=== PATIENT | female | born 1940 | race Caucasian/White ===

== ENCOUNTER 2016-03-21 18:56 | Emergency (ER) | payer OTHER, MEDICARE, BC ==
[2016-03-21 19:43] VITALS: BP 145/67; PULSE 67; RESP 18; TEMP 98.7; O2SAT 99
[2016-03-21] MEDS ORDERED: APAP/HYDROCODONE 325/5 TAB PO ONE ×2 (20:05)
[2016-03-21] MEDS ORDERED: APAP/HYDROCODONE 325/5 TAB ONE (20:07)
[2016-03-21] MEDS ORDERED: APAP/CODEINE 300/30 TAB PO PRN (21:18)
[2016-03-21] MEDS ORDERED: APAP/CODEINE 300/30 TAB ONE (21:20)
== END 2016-03-21 21:30 | disposition home or self-care (01) | DRG 552 ==
LOC: ED 18:56
DX: S32.009A Unspecified fracture of unspecified lumbar vertebra, initial encounter for closed fracture (principal); W01.0XXA Fall on same level from slipping, tripping and stumbling without subsequent striking against object, initial encounter
CPT/HCPCS: 72070; 99282; 99283

== ENCOUNTER 2017-03-28 08:53 | Emergency (ER) | payer MEDICARE, BC ==
[2017-03-28] MEDS ORDERED: METOPROLOL TARTRATE 25 MG TAB PO ONE (09:08)
[2017-03-28] MEDS ORDERED: ASPIRIN 81 MG CHEWABLE CTB PO STA (09:08)
[2017-03-28] MEDS ORDERED: SODIUM CHLORIDE 0.9% FLUSH 10 ML SOL IV PRN (09:08)
[2017-03-28] MEDS ORDERED: METOPROLOL TARTRATE 25 MG TAB ONE (09:22)
[2017-03-28 09:28] LABS: BASOPHILS % (AUTO) 1 % (0-3); EOSINOPHILS % (AUTO) 1 % (0-9); HEMATOCRIT 44 % (35-47); MEAN CORPUSCULAR HGB CONC 34.3 gm/dl (32.0-36.0); MEAN CORPUSCULAR VOLUME 94 fL (81-99); MONOCYTES % (AUTO) 7.9 % (0-12); NEUTROPHILS % (AUTO) 56.6 % (37-80)
[2017-03-28 09:40] LABS: CALCIUM 9.1 mg/dl (8.5-10.1); GLOM FILT RATE 51 mL/min (>60); POTASSIUM 3.9 mMol/L (3.5-5.1); SODIUM 140 mMol/L (136-145)
[2017-03-28 11:04] VITALS: TEMP 98.8
[2017-03-28 12:26] VITALS: BP 146/79; PULSE 56; RESP 26; O2SAT 95
== END 2017-03-28 12:26 | disposition home or self-care (01) | DRG 313 ==
LOC: ED 08:53
DX: R07.9 Chest pain, unspecified (principal); I10 Essential (primary) hypertension
CPT/HCPCS: 36415; 71045; 80048; 82550; 83735; 84484; 85025; 85610; 85730; 93005; 99285; A9270-GY

== ENCOUNTER 2018-03-09 08:32 | Emergency (ER) | payer MEDICARE, BC ==
[2018-03-09 08:50] VITALS: TEMP 96
[2018-03-09 10:58] VITALS: PULSE 80
[2018-03-09] MEDS ORDERED: DIAZEPAM 5 MG TAB PO ONE (11:14)
[2018-03-09] MEDS ORDERED: DIAZEPAM 5 MG TAB ONE (11:29)
[2018-03-09 11:33] VITALS: RESP 18; O2SAT 96
[2018-03-09 12:50] VITALS: BP 149/89
== END 2018-03-09 12:38 | disposition home or self-care (01) | DRG 552 ==
LOC: ED 08:32
DX: M54.5 Low back pain (principal)
CPT/HCPCS: 99282; 99283; A9270-GY

== ENCOUNTER 2018-09-19 04:40 | Emergency (ER) | payer MEDICARE, BC | END 2018-09-19 11:20 | disposition home or self-care (01) | LOC: ED 04:40 ==